=== PATIENT | female | born 1955 | race Caucasian/White ===

== ENCOUNTER 2019-09-16 17:40 | Emergency (ER) | payer MEDICARE, OTHER ==
[~2019-09-16] VITALS: Ht 162.6 cm; Wt 113.4 kg
[~2019-09-16 17:40] MED LIST: ARICEPT10 MG; ATORVASTATIN CA40 MG; BUPROPION XL300 MG; DIOVAN80 MG; LEVOTHYROXINE50 MCG PO; METHADONE HCL10 MG PO; MORPHINE SULFAT30 M1; NITROSTAT0.4 MG; NORCO 10-325 T1 EACH; PERCOCET 10-321 EACH PO; PROMETHAZINE HC25 M1; TRAZODONE HCL50 MG; TRICOR145 MG; XANAX XR1 MG PO; [UNRECOGNIZED DRUG - REMARK]
[2019-09-16 17:56] VITALS: BP 183/96
[2019-09-16] MEDS ORDERED: ONDANSETRON HCL 4 MG ORAL DISINTEGRATING TAB PO ONE ×2 (18:00)
[2019-09-16] MEDS ORDERED: ZOFRAN4 MG BLADIN (18:04)
--- NOTE | 2019-09-16 18:25 | Emergency Department Note ---
History of Present Illnes History of Present Illness Chief Complaint: General Medicine Complaints History of Present Illness This is a 64 year old female arrived to the ED stating she was dropped by her pain management doctor because there was not enough opioids in her system. Patient is requesting hydrocodone, hydromorphone. Patient also complaining of nausea. Patient denies any abdominal pain. Patient states she is able to tolerate oral intake.. 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 Any updates have been documented here. Past Medical History Recent Fever: No Clinical Suspicion of Infectio: No New/Unexplained Change in Ment: No Past Medical History: Hypertension, Hypothyroidism, Depression, Hyperlipedemia Other Medical History: chronic back pain early onset dementia Past Surgical History: Cholecysctectomy, Appendectomy, Hysterectomy, Knee Replacement, Back Surgery Other Surgery: carpal tunnel Social History Smoking Cessation: Former smoker Counseling Performed: No Alcohol Use: None Any Illegal Drug Use: No TB Exposure/Symptoms: No Physically hurt or threatened: No Other Last Tetanus: ood Any Pre-Existing Lines (PICC,: No Is patient up to date on immun: No Last Flu: OOD Last Pneumovax: OOD Review of Systems Review of Systems Constitutional: Reports no symptoms EENTM: Reports no symptoms Cardiovascular: Reports no symptoms Respiratory: Reports no symptoms Gastrointestinal: Reports as per HPI, Reports nausea Genitourinary: Reports no symptoms Musculoskeletal: Reports no symptoms Integumentary: Reports no symptoms Neurological: Reports no symptoms Psychological: Reports no symptoms Endocrine: Reports no symptoms Hematological/Lymphatic: Reports no symptoms Physical Exam Related Data Allergies: Coded Allergies: amoxicillin (Verified Allergy, Unknown, 09/16/19) clavulanic acid (Verified Allergy, Unknown, 09/16/19) codeine (Verified Allergy, Unknown, 01/17/16) lorazepam (Verified Allergy, Unknown, 01/17/16) Triage Vital Signs Vital Signs Date Time Temp Pulse Resp B/P (MAP) Pulse Ox O2 Delivery O2 Flow Rate FiO2 09/16/19 17:46 97.5 70 18 183/96 96 Vital signs reviewed: Yes Physical Exam CONSTITUTIONAL Constitutional: Present well-developed, Present well-nourished HENT HENT: Present normocephalic, Present atraumatic, Present oropharynx clear/moist, Present nose normal HENT L/R: Present left ext ear normal, Present right ext ear normal EYES Eyes: Reports PERRL, Reports conjunctivae normal NECK Neck: Present ROM normal PULMONARY Pulmonary: Present effort normal, Present breath sounds normal CARDIOVASCULAR Cardiovascular: Present regular rhythm, Present heart sounds normal, Present capillary refill normal, Present normal rate GASTROINTESTINAL Abdominal: Present soft, Present nontender, Present bowel sounds normal GENITOURINARY Genitourinary: Present exam deferred SKIN Skin: Present warm, Present dry MUSCULOSKELETAL NEUROLOGICAL Neurological: Present alert, Present oriented x 3, Present no gross motor or sensory deficits PSYCHOLOGICAL Psychological: Present mood/affect normal, Present judgement normal Assessment & Plan Medical Decision Making MDM 64-year-old female arrived to the ED requesting refill of hydrocodone, spoke to patient at length about nonnarcotic pain management. Patient expressed understanding. Patient was given resources for outpatient addiction medicine. 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 Clonidine and rectal Phenergan were offered which patient did not wish to have at this time. Patient understands she is welcome to return any time to the ER, however, chronic pain is something that is managed as an outpatient Assessment & Plan Final Impression: (1) Opiate addiction (2) Opiate dependence (3) Opiate withdrawal (4) Drug-seeking behavior Depart Disposition: HOME, SELF-CARE Last Vital Signs Date Time Temp Pulse Resp B/P (MAP) Pulse Ox O2 Delivery O2 Flow Rate FiO2 09/16/19 17:56 70 8 96 09/16/19 17:46 97.5 183/96 Home Meds Active Scripts Ondansetron Hcl* (ZOFRAN*) 4 Mg Tablet, 4 MG BLADIN Q8HR PRN for NAUSEA, #14 Prov:ALICIA FERRARA, 09/16/19 Reported Medications Oxycodone Hcl/Acetaminophen (PERCOCET 10-325 MG TABLET) 1 Each Tablet, 1 TAB PO Q6H PRN for PAIN 01/17/16 Methadone Hcl (METHADONE HCL) 10 Mg Tablet, 10 MG PO BID 01/17/16 Levothyroxine Sodium (LEVOTHYROXINE SODIUM) 50 Mcg Tablet, 100 MCG PO DAILY, #30 TAB 01/17/16 Bupropion Hcl (BUPROPION XL) 300 Mg Tab.er.24h, daily 09/15/12 Valsartan (DIOVAN) 80 Mg Tab, dialy 09/15/12 Alprazolam (XANAX XR) 1 Mg Tab.er.24h, 2 MG PO DAILY 09/15/12 Medications in the ED Ondansetron HCl 4 mg ONCE ONCE PO Last administered on 09/16/19at 18:04; Admin Dose 4 MG; Start 09/16/19 at 18:00; Stop 09/16/19 at 18:13; Status DC Ondansetron HCl 4 mg ONCE ONCE PO ; Start 09/16/19 at 18:00; Stop 09/16/19 at 18:01; Status ALICIA CHICAS DO Sep 16, 2019 18:25
== END 2019-09-16 18:15 | disposition home or self-care (01) ==
LOC: ER 17:40
DX: F11.20 Opioid dependence, uncomplicated (principal); F11.23 Opioid dependence with withdrawal; Z76.5 Malingerer [conscious simulation]; I10 Essential (primary) hypertension; E78.5 Hyperlipidemia, unspecified; E03.9 Hypothyroidism, unspecified; M54.5 Low back pain; G89.29 Other chronic pain
CPT/HCPCS: 99283; Q0162

== ENCOUNTER 2020-10-18 16:45 | Emergency (ER) | payer MEDICARE, OTHER ==
[~2020-10-18] VITALS: Ht 162.6 cm; Wt 113.4 kg
[~2020-10-18 16:45] MED LIST changes: +ZOFRAN4 MG BLADIN
== END 2020-10-18 19:40 | disposition home or self-care (01) ==
LOC: ER 17:25
DX: S63.501A Unspecified sprain of right wrist, initial encounter (principal); M54.9 Dorsalgia, unspecified; G89.29 Other chronic pain; W01.0XXA Fall on same level from slipping, tripping and stumbling without subsequent striking against object, initial encounter; Y93.01 Activity, walking, marching and hiking; Y92.008 Other place in unspecified non-institutional (private) residence as the place of occurrence of the external cause; I10 Essential (primary) hypertension; E78.5 Hyperlipidemia, unspecified; E03.9 Hypothyroidism, unspecified; F03.90 Unspecified dementia, unspecified severity, without behavioral disturbance, psychotic disturbance, mood disturbance, and anxiety
CPT/HCPCS: 70450; 72125; 72128; 72131; 99283

== ENCOUNTER 2024-01-06 16:12 | Emergency (ER) | payer MEDICARE, OTHER ==
[~2024-01-06] VITALS: Ht 154.9 cm; Wt 90.7 kg
[2024-01-06 16:18] VITALS: PULSE 61; RESP 16; TEMP 97.5; O2SAT 95
[2024-01-06] MEDS ORDERED: GOLYTELY SOLU4000 M1 PO (17:16)
== END 2024-01-06 18:45 | disposition home or self-care (01) ==
LOC: ER 16:17
DX: K59.00 Constipation, unspecified (principal); I10 Essential (primary) hypertension; E78.5 Hyperlipidemia, unspecified; E03.9 Hypothyroidism, unspecified; F32.A Depression, unspecified; M54.9 Dorsalgia, unspecified; G89.29 Other chronic pain; Z95.0 Presence of cardiac pacemaker
CPT/HCPCS: 74176; 99283